=== PATIENT | female | born 1985 | race Caucasian/White ===

== ENCOUNTER → 2019-04-22 | Outpatient (CLI) | payer BC | LOC: LAB 17:43 | PROVIDERS: ATTEND Nurse Practitioner Family | DX: Z32.00 Encounter for pregnancy test, result unknown (principal); R53.83 Other fatigue | CPT/HCPCS: 36415; 84703 ==

== ENCOUNTER → 2019-09-12 | Outpatient (CLI) | payer BC ==
--- NOTE | 2019-09-12 16:43 | Diagnostic Imaging Report ---
INDICATION: . TECHNIQUE: Multiple real-time grayscale images were obtained over the gravid uterus. COMPARISON: None FINDINGS: There is single live intrauterine fetus which is vertex. Amniotic fluid index is normal at 10 cm. The placenta is anterior and not low. No evidence of abruption or previa. Normal heart rate. anatomical survey is normal. kidneys, bladder, stomach, ventricles and brain, four-chamber heart, three-vessel cord, cord insertion and spine are normal. Biometrical measurements are as follows: Biparietal 4.75 cm, age 20 weeks 3 days. Head circumference 18.60 cm, age 21 weeks 0 days. Abdominal circumference 15.42 cm, age 20 weeks 5 days. Femur length 3.45 cm, age 21 weeks 0 days. Sonographic estimate age: 20 weeks 6 days. Sonographic estimated date of delivery: 01/24/2020. Estimated Weight: 373 gm (+/- 55 gm). LMP percentile: 31%. heart rate: 156 beats per minute. number: 1 of 1. IMPRESSION: 1. Normal single live intrauterine fetus in vertex presentation. Current biometric measurements are average for 20 weeks 6 day gestation. No abnormalities demonstrated. Dictated by: Dictated on workstation # [id number]
== END ==
LOC: RAD 14:43
PROVIDERS: ATTEND Obstetrics & Gynecology
DX: Z36.9 Encounter for antenatal screening, unspecified (principal); Z3A.20 20 weeks gestation of pregnancy
CPT/HCPCS: 76805

== ENCOUNTER 2020-01-20 08:05 | Inpatient (IN) | payer BC ==
[~2020-01-20] VITALS: Ht 170.2 cm; Wt 77.4 kg
[2020-01-20] VITALS (47 sets, daily range): BP systolic 106–158; BP diastolic 56–99
--- NOTE | 2020-01-20 08:10 | NUR ---
CAESAR BROWN presented to unit via AMBULATORY from ED, accompanied by S/O, with c/o LABOR. CAESAR BROWN weighed, gowned, voided, and to bed. EFHM and TOCO applied, VS taken. CAESAR BROWN oriented to bed controls, call light, TV, heat, and A/C controls.
[2020-01-20] MEDS ORDERED: D5 LR IV SOLUTION 1,000 ML IV ONE (08:17)
[2020-01-20] MEDS ORDERED: D5 LR IV SOLUTION 1,000 ML IV SCH (08:34)
[2020-01-20] MEDS ORDERED: OXYTOCIN PRE-MIX DRIP 500 ML IV SCH ×2 (08:36→15:56)
--- NOTE | 2020-01-20 08:42 | History & Physical-OB ---
OB - Chief Complaint & HPI Date/Time Date of Admission: Date of Admission: January 20, 2020 at 08:26 Date seen by a Provider: January 20, 2020 Time Seen by a Provider: 08:30 Chief Complaint/History OB-Reason for Admission/Chief: Onset of Labor Hx : 1 Hx Para: 0 Expected Date of Delivery: Jan 23, 2020 Gestational Age in Weeks: 39 Gestational Age in Days: 4 Admission Nurse Assessment Rev: Yes Allergies and Home Medications Allergies Coded Allergies: No Known Drug Allergies (Unverified , 01/20/20) Patient Home Medication List Home Medication List Reviewed: Yes OB - History Hx of Present Care: Yes Ultrasounds: Normal mid trimester US Obstetrical Complications: None Medical Complications: None Patient Past Medical History n/a OB - Admission Exam Physical Exam HEENT: NCAT Heart: Rhythm Normal Lungs: Clear Abdomen: Gravid Extremities: Normal Reflexes: Normal Cervical Dilatation: 5cm Effacement: 100% Station: -1 Membranes: Ruptured Amniotic Fluid: Clear Heart Rate: 130's Accelerations: Accelerations Present Decelerations: No Decelerations Short Term Variability: Present Guest History Clerk Variability: Average (6-25) Contractions on Admission: < 5 Minutes Apart Intensity: Firm OB - Assessment/Plan/Diagnosis Assessment Assessment: active labor, rupture of membranes Admission Dx 34 yo @ 39.4 weeks Active labor GBS neg AMA Admission Status: Inpatient Order (span 2 midnights) Reason for Inpatient Admission: Active labor at term Plan Plan: Expectant Management MERCEDES MALIN DO January 20, 2020 08:42
--- OUTSIDE RECORDS SUMMARY | 2020-01-20 08:49 | XMS REPORT | Continuity of Care Document ---
Author Organization Unknown Address Unknown Phone Unavailable Allergies There is no data. Medications There is no data. Problems Date Dx Coded Attending Type Code Diagnosis Diagnosed By 04/27/2019 KRISTA, BIGG L CHAIN DYER Ot R53.83 OTHER FATIGUE 04/27/2019 KRISTA, BIGG L CHAIN DYER Ot Z32.00 ENCOUNTER FOR TEST, RESULT UNK 05/10/2019 KRISTA, BIGG L CHAIN DYER Ot R53.83 OTHER FATIGUE 05/10/2019 KRISTA, BIGG L CHAIN DYER Ot Z32.00 ENCOUNTER FOR TEST, RESULT UNK 05/23/2019 KRISTA, BIGG L CHAIN DYER Ot R53.83 OTHER FATIGUE 05/23/2019 KRISTA, BIGG L CHAIN DYER Ot Z32.00 ENCOUNTER FOR TEST, RESULT UNK 05/23/2019 KRISTA, BIGG L CHAIN DYER Ot R53.83 OTHER FATIGUE 05/23/2019 KRISTA, BIGG L CHAIN DYER Ot Z32.00 ENCOUNTER FOR TEST, RESULT UNK 09/12/2019 MERCEDES MALIN DO Ot Z36.9 ENCOUNTER FOR SCREENING, UNSPE 09/12/2019 WOLFGANGECH , MERCEDES Roberson Ot Z3A.20 20 WEEKS GESTATION OF 10/04/2019 MERCEDES MALIN DO Ot Z36.9 ENCOUNTER FOR SCREENING, UNSPE 10/04/2019 KIMO WHITEHEAD, MERCEDES Roberson Ot Z3A.20 20 WEEKS GESTATION OF Procedures There is no data. Results Test Result Range Serum or plasma choriogonadotropin (preg thea test) detection - 04/22/19 17:48 Serum or plasma choriogonadotropin ( test) de tection NEGATIVE NEGATIVE Encounters ACCT No. Visit Date/Time Discharge Status Pt. Type Provider Facility Loc./Unit Complaint [id number] 09/12/2019 14:43:00 020 23:59:59 [facility] Outpatient MERCEDES MALIN DO [facility] RAD [id number] 04/22/2019 17:43:00 019 23:59:59 [facility] Outpatient BIGG VELASCO APRN [facility] LAB OTHER FATIGUE
[2020-01-20 08:51] LABS: BASOPHILS % (AUTO) 0 % (0-10); EOSINOPHILS # (AUTO) 0.1 10^3/uL (0.0-0.3); EOSINOPHILS % (AUTO) 1 % (0-10); HEMATOCRIT 37 % (35-52); HEMOGLOBIN 12.3 G/DL (11.5-16.0); LYMPHOCYTES # (AUTO) 1.3 X 10^3 (1.0-4.0); LYMPHOCYTES % (AUTO) 13 % (12-44); MEAN CORPUSCULAR HEMOGLOBIN 30 PG (25-34); MEAN CORPUSCULAR HGB CONC 34 G/DL (32-36); MEAN CORPUSCULAR VOLUME 90 FL (80-99); MEAN PLATELET VOLUME 9.9 FL (7.4-10.4); MONOCYTES % (AUTO) 10 % (0-12); NEUTROPHILS # (AUTO) 7.8 X 10^3 (1.8-7.8); NEUTROPHILS % (AUTO) 77 % (42-75); PLATELET COUNT 209 10^3/uL (130-400); RED CELL DISTRIBUTION WIDTH 13.7 % (10.0-14.5); WHITE BLOOD COUNT 10.2 10^3/uL (4.3-11.0)
[2020-01-20] MEDS ORDERED: fentaNYL 2 mcg/ml BUPIVA 0.125 100 ML ONE (09:05)
[2020-01-20] MEDS ORDERED: LIDOCAINE PF 2% 5 ML (XYLOCAINE) VIAL ONE (09:18)
[2020-01-20] MEDS ORDERED: fentaNYL INJECTION 100 MCG/2 ML AMP ONE (09:18)
--- NOTE | 2020-01-20 09:27 | NUR ---
0927 Eduarda SARGENT CRNA here for epidural placement. Procedure explained, consent reviewed and signed by anesthesia. Questions answered to patient's satisfaction. Time out taken to verify correct patient/procedure. 0929 Patient up to side of bed, assisted into sitting position. 0933 Betadine prep done x3 and sterile drape applied. 0934 Local done, see anesthesia record. Epidural catheter secured in place. Epidural placement complete. 0945 Assisted back into bed, monitors adjusted. Epidural dosed, see anesthesia record. Epidural started @ 12cc/hr stated per pump. Patient tolerated procedure well.
[2020-01-20] MEDS ORDERED: LACTATED RINGERS 1,000 ML IV ONE ×2 (10:06)
[2020-01-20] MEDS ORDERED: BUPIVACAINE 0.25% 30 ML (SENSORCAINE) VIAL ONE (10:08)
[2020-01-20] MEDS ORDERED: NALOXONE 0.4 MG/ML 1 ML (NARCAN) VIAL IV PRN (10:15)
[2020-01-20] MEDS ORDERED: ONDANSETRON 4 MG/2 ML (SDV) Z0FRAN IV PRN (10:15)
[2020-01-20] MEDS ORDERED: EPIDURAL (fentaNYL 2 MCG/ML BUPIVA 0.125%)100 ML BAG EPI PRN (10:15)
[2020-01-20] MEDS ORDERED: PREN-37 PO (11:56)
[2020-01-20] MEDS ORDERED: WATER (STERILE) FOR INJECTION 10 ML ONE (12:08)
[2020-01-20] MEDS ORDERED: AMPICILLIN FOR IV USE 1,000 MG/VIAL ONE (12:08)
[2020-01-20] MEDS ORDERED: LIDOCAINE/EPI 2% 1:200,00 (XYLOCAINE) 20 ML VIAL ONE (13:45)
[2020-01-20] MEDS ORDERED: CATHETER FLUSH 10 ML SYR IV SCH ×2 (14:00→22:00)
[2020-01-20] MEDS ORDERED: TETANUS,DIPTH,PERTUSS P/F (BOOSTRIX) 0.5 ML VIAL IM ONE (16:00)
[2020-01-20] MEDS ORDERED: DIBUCAINE (NUPERCAINAL) 1% OINT 30 GM TOP PRN (16:00)
[2020-01-20] MEDS ORDERED: MEASLES,MUMPS,RUBELLA 1 EA INJ SQ ONE (16:00)
--- NOTE | 2020-01-20 16:07 | OB Labor & Delivery Record ---
L&D History Date of Service Date of Service: January 20, 2020 History Expected Date of Delivery: Jan 23, 2020 Gestational Age in Weeks: 39 Hx : 1 Hx Para: 0 Complications Events: Routine care Operative Indications (Cesarea: N/A-Vaginal Delivery Intrapartal Events: None L&D Stage1 Stage One Onset of Labor - Date: January 20, 2020 Monitors and Tracing Monitor Mode: External Monitor Accelerations: Uniform Monitor Decelerations: Variable Station: -1 Gas Charger Variability: Average (6-10) Short Term Variability: Present Presentation: Vertex Vital Signs VS - Last 72 Hours, by Label 01/20/20 01/20/20 01/20/20 01/20/20 08:21 09:26 09:30 09:34 Pulse 68 71 77 74 Resp 18 18 18 18 B/P (MAP) 154/99 (117) 151/80 (103) 143/99 (114) 139/82 (101) Pulse Ox 97 O2 Delivery Room Air Room Air Room Air Room Air 01/20/20 01/20/20 01/20/20 01/20/20 09:37 09:40 09:42 09:46 Pulse 69 75 70 66 Resp 18 18 18 18 B/P (MAP) 155/75 (101) 137/78 (97) 141/87 (105) 138/87 (104) Pulse Ox 100 98 96 O2 Delivery Room Air Room Air Room Air Room Air 01/20/20 01/20/20 01/20/20 01/20/20 09:49 09:51 09:54 09:57 Pulse 60 76 68 64 Resp 18 18 18 18 B/P (MAP) 152/77 (102) 136/84 (101) 131/85 (100) 129/63 (85) Pulse Ox 95 96 O2 Delivery Room Air Room Air Room Air Room Air 01/20/20 01/20/20 01/20/20 01/20/20 10:00 10:03 10:10 10:16 Pulse 70 75 61 66 Resp 18 18 18 18 B/P (MAP) 138/63 (88) 125/58 (80) 134/86 (102) 141/81 (101) Pulse Ox 96 97 99 O2 Delivery Room Air Room Air Room Air Room Air 01/20/20 01/20/20 01/20/20 01/20/20 10:20 10:24 10:30 10:34 Pulse 65 66 64 72 Resp 18 18 18 18 B/P (MAP) 135/81 (99) 143/85 (104) 130/84 (99) 121/91 (101) Pulse Ox 99 97 97 97 O2 Delivery Room Air Room Air Room Air Room Air 01/20/20 01/20/20 01/20/20 01/20/20 10:40 10:46 10:50 10:54 Pulse 62 63 66 70 Resp 18 18 18 18 B/P (MAP) 128/79 (95) 122/89 (100) 128/77 (94) 132/83 (99) Pulse Ox 97 98 98 100 O2 Delivery Room Air Room Air Room Air Room Air 01/20/20 01/20/20 10:58 11:11 Temp 36.3 Pulse 61 Resp 18 B/P (MAP) 114/59 (77) Pulse Ox 99 O2 Delivery Room Air Rupture of Membranes Spontaneous Ruture of Membrane: Yes Amniotic Membrane Rupture Time: 07:15 Amniotic Membrane Fluid Desc.: Clear Vaginal Bleeding Description: Normal Show Induction/Anesthesia Epidural Cath Placement - Time: 0941 Progress/Notes After arrival patient received epidural, pitocin augmentation was started. She progressed to complete and +1 station L&D Stage2 Stage Two Stage II Date: January 20, 2020 Monitors and Tracing Monitor Mode: External Monitor Accelerations: Uniform Monitor Decelerations: Variable Gas Charger Variability: Average (6-10) Short Term Variability: Present Position: Right Occiput Anterior Presentation: Vertex Cord Descript/Complications Cord Vessel Description: 3 Vessels Delivery Type Delivery Method: Spontaneous Vaginal Anterior Shoulder: Left Episiotomy/Perineal Laceration Laceraction(s)/Extensions: Yes Episiotomy Description: Periurethral Extnsion/lac, Vaginal Extension/lac, 1st degree Degree (describe repair) Vaginal and periurethral lacerations repiared using 3-0 vicryl suture in usual fashion Condition of Infant Delivery 1 minute Comment: 8 5 minute Comment: 9 Notes Live male infant weight 7lbs 9oz. Condition of Condition of Infant: Living Exam: No Observed Abnormalities Resuscitation Resuscitation: N/A - Spontaneous Resp L&D Stage3 Stage Three Stage III Date: January 20, 2020 Pictocin Pitocin Administration Comment: 30 mu wide open at delivery of placenta Placenta Delivery Placenta Delivery: Spontaneous Delivery Summary Summary Estimated blood loss (mL): 300 Attending at delivery: Mercedes Malin DO Condition of Delivery Examined: Cervix Examined, Uterus Explored Post Hemorrhage: No Condition of Mother stable Condition of Infant (s) stable MERCEDES MALIN DO January 20, 2020 16:07
[2020-01-20] MEDS: WITCH HAZEL(TUCKS) 40 EA JAR TOP PRN (16:41)
[2020-01-20] MEDS: BENZOCAINE/MENTHOL (DERMOPLAST) 60 ML CAN TP PRN (16:41)
[2020-01-20] MEDS: IBUPROFEN 600 MG (MOTRIN) TAB PO SCH ×2 (16:41→21:57)
--- NOTE | 2020-01-20 18:05 | NUR ---
REFER TO LABOR FLOW SHEET.
--- NOTE | 2020-01-20 18:45 | NUR ---
PT SITTING UP ON THE SIDE OF THE BED, ICE PACK PROVIDED FOR PERINEUM. 'S TEMP OBTAINED PER PT'S REQUEST. QUESTIONS ANSWERED. NO FURTHER NEEDS VOICED. CALL LIGHT WITHIN REACH.
[2020-01-20] MEDS: DOCUSATE SODIUM 100 MG (COLACE) CAP PO SCH (20:58)
[2020-01-20] MEDS: HYDROcodone/APAP 5 MG/325 MG (LORTAB) TAB PO PRN (22:44)
--- NOTE | 2020-01-21 03:30 | NUR ---
report received from Katy Corey RN
[2020-01-21] MEDS: IBUPROFEN 600 MG (MOTRIN) TAB PO SCH ×4 (03:43→22:21)
[2020-01-21 03:45] VITALS: BP 120/73
[2020-01-21 06:00] LABS: BASOPHILS % (AUTO) 0 % (0-10); EOSINOPHILS % (AUTO) 0 % (0-10); HEMATOCRIT 30 % (35-52); HEMOGLOBIN 10.1 G/DL (11.5-16.0); LYMPHOCYTES # (AUTO) 1.3 X 10^3 (1.0-4.0); LYMPHOCYTES % (AUTO) 11 % (12-44); MEAN CORPUSCULAR HEMOGLOBIN 30 PG (25-34); MEAN CORPUSCULAR HGB CONC 33 G/DL (32-36); MEAN CORPUSCULAR VOLUME 91 FL (80-99); MEAN PLATELET VOLUME 9.5 FL (7.4-10.4); MONOCYTES % (AUTO) 8 % (0-12); NEUTROPHILS # (AUTO) 9.7 X 10^3 (1.8-7.8); NEUTROPHILS % (AUTO) 81 % (42-75); PLATELET COUNT 180 10^3/uL (130-400); RED CELL DISTRIBUTION WIDTH 13.6 % (10.0-14.5)
[2020-01-21 07:50] VITALS: BP 104/70
--- NOTE | 2020-01-21 07:56 | Postpartum Progress Note ---
Note Note Day # 1 Subjective: Patient is without complaints. Ambulating, voiding. Tolerating a regular diet without nausea or vomiting. Normal lochia. Pain is well controlled with oral pain medications. Objective: Physical Exam: General - Alert and oriented, no apparent distress Abdomen - Soft, appropriately tender to palpation, non-distended, fundus firm at umbilicus Extremities - no edema, negative Stanford's bilaterally Assessment: PPD 1 NVD Acute blood loss anemia Plan: Routine care. Encourage breast feeding. Encourage ambulation. Ferrous sulfate supplementation. Plan for discharge today, pending infant release Vitals - Labs Vital Signs - I&O Vital Signs Date Time Temp Pulse Resp B/P (MAP) Pulse Ox O2 Delivery O2 Flow Rate FiO2 01/21/20 03:45 36.6 66 16 120/73 (89) 96 Room Air 01/20/20 23:13 37.0 55 14 125/56 (79) 97 Room Air 01/20/20 20:00 36.7 57 16 139/77 (97) 94 Room Air 01/20/20 16:09 77 18 133/63 (86) Room Air 01/20/20 15:54 37.4 88 18 158/69 (98) Room Air 01/20/20 15:39 94 18 131/69 (89) Room Air 01/20/20 15:25 104 18 127/69 (88) Room Air 01/20/20 15:10 133 18 135/66 (89) Room Air 01/20/20 14:56 96 18 135/70 (91) Room Air 01/20/20 14:45 37.1 01/20/20 14:40 81 18 124/69 (87) Room Air 01/20/20 14:24 76 18 130/79 (96) Room Air 01/20/20 14:11 144 18 127/79 (95) Room Air 01/20/20 13:54 72 18 127/75 (92) 100 Room Air 01/20/20 13:40 36.1 63 18 123/81 (95) Room Air 01/20/20 13:26 81 18 127/78 (94) 100 Room Air 01/20/20 13:10 73 18 135/79 (97) 100 Room Air 01/20/20 13:04 35.7 01/20/20 12:55 64 18 126/75 (92) 100 Room Air 01/20/20 12:40 66 18 128/67 (87) 100 Room Air 01/20/20 12:25 63 18 133/86 (102) 100 Room Air 01/20/20 12:10 68 18 130/82 (98) 100 Room Air 01/20/20 11:54 71 18 131/70 (90) 99 Room Air 01/20/20 11:40 36.4 71 18 114/69 (84) 100 Room Air 01/20/20 11:26 60 18 106/58 (74) 98 Room Air 01/20/20 11:11 61 18 114/59 (77) 99 Room Air 01/20/20 10:58 36.3 01/20/20 10:54 70 18 132/83 (99) 100 Room Air 01/20/20 10:50 66 18 128/77 (94) 98 Room Air 01/20/20 10:46 63 18 122/89 (100) 98 Room Air 01/20/20 10:40 62 18 128/79 (95) 97 Room Air 01/20/20 10:34 72 18 121/91 (101) 97 Room Air 01/20/20 10:30 64 18 130/84 (99) 97 Room Air 01/20/20 10:24 66 18 143/85 (104) 97 Room Air 01/20/20 10:20 65 18 135/81 (99) 99 Room Air 01/20/20 10:16 66 18 141/81 (101) 99 Room Air 01/20/20 10:10 61 18 134/86 (102) 97 Room Air 01/20/20 10:03 75 18 125/58 (80) Room Air 01/20/20 10:00 70 18 138/63 (88) 96 Room Air 01/20/20 09:57 64 18 129/63 (85) 96 Room Air 01/20/20 09:54 68 18 131/85 (100) Room Air 01/20/20 09:51 76 18 136/84 (101) 95 Room Air 01/20/20 09:49 60 18 152/77 (102) Room Air 01/20/20 09:46 66 18 138/87 (104) 96 Room Air 01/20/20 09:42 70 18 141/87 (105) Room Air 01/20/20 09:40 75 18 137/78 (97) 98 Room Air 01/20/20 09:37 69 18 155/75 (101) 100 Room Air 01/20/20 09:34 74 18 139/82 (101) Room Air 01/20/20 09:30 77 18 143/99 (114) 97 Room Air 01/20/20 09:26 71 18 151/80 (103) Room Air 01/20/20 08:21 68 18 154/99 (117) Room Air I & O 01/21/20 07:00 Intake Total 3200 ml Balance 3200 ml Labs Laboratory Tests 01/20/20 08:40: White Blood Count 10.2, Red Blood Count 4.07L, Hemoglobin 12.3, Hematocrit 37, Mean Corpuscular Volume 90, Mean Corpuscular Hemoglobin 30, Mean Corpuscular Hemoglobin Concent 34, Red Cell Distribution Width 13.7, Platelet Count 209, Mean Platelet Volume 9.9, Neutrophils (%) (Auto) 77H, Lymphocytes (%) (Auto) 13, Monocytes (%) (Auto) 10, Eosinophils (%) (Auto) 1, Basophils (%) (Auto) 0, Neutrophils # (Auto) 7.8, Lymphocytes # (Auto) 1.3, Monocytes # (Auto) 1.0, Eosinophils # (Auto) 0.1, Basophils # (Auto) 0.0 01/21/20 05:28: White Blood Count 12.0H, Red Blood Count 3.34L, Hemoglobin 10.1L, Hematocrit 30L , Mean Corpuscular Volume 91, Mean Corpuscular Hemoglobin 30, Mean Corpuscular Hemoglobin Concent 33, Red Cell Distribution Width 13.6, Platelet Count 180, Mean Platelet Volume 9.5, Neutrophils (%) (Auto) 81H, Lymphocytes (%) (Auto) 11L , Monocytes (%) (Auto) 8, Eosinophils (%) (Auto) 0, Basophils (%) (Auto) 0, Neutrophils # (Auto) 9.7H, Lymphocytes # (Auto) 1.3, Monocytes # (Auto) 1.0, Eosinophils # (Auto) 0.0, Basophils # (Auto) 0.0 MERCEDES MALIN DO January 21, 2020 07:56
[2020-01-21] MEDS ORDERED: BENZ78AE2 TP (07:58)
[2020-01-21] MEDS ORDERED: IBUP-844 PO (07:58)
[2020-01-21] MEDS ORDERED: DCS100C PO (07:58)
[2020-01-21] MEDS ORDERED: HYDR-83 PO (07:58)
[2020-01-21] MEDS ORDERED: DIBU30OI TOP (07:58)
--- NOTE | 2020-01-21 07:59 | Discharge Inst-Women's Service ---
Discharge Inst-Women's Serv Depart Medication/Instructions New, Converted or Re-Newed RX: RX on Chart Final Diagnosis PPD 1 NVD Problems Reviewed?: Yes Consults/Follow Up Additional Follow Up: Yes Orders/Referrals Dr. Malin 6 weeks Activity Activity: Activity as Tolerated Driving Instructions: No Driving for 1 Week NO SMOKING: NO SMOKING Nothing Inside Vagina: No Douching, No [place], No Tampons Diet Discharge Diet: No Restrictions Symptoms to Report to : Bleeding Excessive, Pain Increased, Fever Over 101 Degrees F, Vaginal Bleeding Increase, Questions/Concerns For Any Problems or Questions: Contact Your Physician MERCEDES MALIN DO January 21, 2020 07:59
--- NOTE | 2020-01-21 10:21 | Anesthesia-Regional Post-Op ---
Regional Patient Condition Mental Status: Alert, Oriented x3 Circulation: Same as Pre-Op Headache: Absent Sensation: Full Recovery Motor Block: Absent Post Op Complications Complications None Follow Up Care/Instructions Patient Instructions None needed. Anesthesia/Patient Condition Patient is doing well, no complaints, stable vital signs, no apparent adverse anesthesia problems. No complications reported per nursing. JERMAINE SARGENT CRNA January 21, 2020 10:21
[2020-01-21] MEDS: PRENATAL VITAMIN 1 EA TAB PO SCH (11:42)
[2020-01-21] MEDS: DOCUSATE SODIUM 100 MG (COLACE) CAP PO SCH ×2 (11:42→19:39)
[2020-01-21] MEDS: HYDROcodone/APAP 5 MG/325 MG (LORTAB) TAB PO PRN ×2 (12:35→19:40)
[2020-01-21 16:05] VITALS: BP 129/68
[2020-01-21 19:45] VITALS: BP 111/76
[2020-01-21 22:20] VITALS: BP 112/77
[2020-01-22 04:30] VITALS: BP 113/76
[2020-01-22] MEDS: IBUPROFEN 600 MG (MOTRIN) TAB PO SCH (04:36)
[2020-01-22] MEDS: HYDROcodone/APAP 5 MG/325 MG (LORTAB) TAB PO PRN (04:36)
--- NOTE | 2020-01-22 09:00 | Postpartum Progress Note ---
Note Note Day # 2 Subjective: Patient is without complaints. Ambulating, voiding. Tolerating a regular diet without nausea or vomiting. Normal lochia. Pain is well controlled with oral pain medications. Objective: Physical Exam: General - Alert and oriented, no apparent distress Abdomen - Soft, appropriately tender to palpation, non-distended, fundus firm at umbilicus Extremities - no edema, negative Stanford's bilaterally Assessment: PPD 2 NVD Plan: Routine care. Encourage breast feeding. Encourage ambulation. Ferrous sulfate supplementation. Plan for discharge today Vitals - Labs Vital Signs - I&O Vital Signs Date Time Temp Pulse Resp B/P (MAP) Pulse Ox O2 Delivery O2 Flow Rate FiO2 01/22/20 04:30 36.5 68 16 113/76 (88) 98 Room Air 01/21/20 22:20 36.6 63 16 112/77 (89) 97 Room Air 01/21/20 19:45 36.1 64 16 111/76 (88) 97 Room Air 01/21/20 16:05 37.1 68 20 129/68 (88) Room Air MERCEDES MALIN DO January 22, 2020 09:00
[2020-01-22 09:46] VITALS: BP 130/74
[2020-01-22] MEDS: PRENATAL VITAMIN 1 EA TAB PO SCH (09:46)
[2020-01-22] MEDS: DOCUSATE SODIUM 100 MG (COLACE) CAP PO SCH (09:46)
[2020-01-22] MEDS: BENZOCAINE/MENTHOL (DERMOPLAST) 60 ML CAN TP PRN (09:46)
[2020-01-22] MEDS: WITCH HAZEL(TUCKS) 40 EA JAR TOP PRN (09:46)
--- NOTE | 2020-01-22 09:46 | NUR ---
AM shift assessment completed and vital signs obtained, see interventions. Plan of care reviewed with patient. Patient verbalizes understanding and questions answered. Scheduled Colace and PNV PO given.
--- NOTE | 2020-01-22 12:21 | NUR ---
Discharge instructions and medications reviewed with patient both written and verbally. Patient verbalizes understanding and questions answered.
--- NOTE | 2020-01-22 12:30 | NUR ---
Patient discharged at this time and ambulated down to awaiting private vehicle accompanied by this RN. No signs or symptoms of distress noted.
== END 2020-01-22 12:30 | disposition home or self-care (01) | DRG 806 ==
LOC: WSo 08:05 → LDRP 08:23 → WSo 08:26 → LDRP 08:26
PROVIDERS: ADMIT Obstetrics & Gynecology; ATTEND Obstetrics & Gynecology
PROC: 10E0XZZ Delivery of Products of Conception, External Approach (ICD-10-PCS; principal; 2020-01-20)
PROC: 0HQ9XZZ Repair Perineum Skin, External Approach (ICD-10-PCS; 2020-01-20)
PROC: 0UQMXZZ Repair Vulva, External Approach (ICD-10-PCS; 2020-01-20)
PROC: 0W8NXZZ Division of Female Perineum, External Approach (ICD-10-PCS; 2020-01-20)
DX: O71.82 Other specified trauma to perineum and vulva (principal); O90.81 Anemia of the puerperium; D62 Acute posthemorrhagic anemia; Z37.0 Single live birth; O70.0 First degree perineal laceration during delivery; Z3A.39 39 weeks gestation of pregnancy
CPT/HCPCS: 36415; 85025; 86850; 86900; 86901; 99212

== ENCOUNTER 2021-08-19 11:30 | Outpatient (CLI) | payer BC ==
[~2021-08-19] VITALS: Ht 170 cm; Wt 63.6 kg
[2021-08-19 11:30] VITALS: BP 137/77
[~2021-08-19 11:30] MED LIST: ACHD5005 PO; BENZ78AE5 TP; DIBU30OI TOP; DOCU-239 PO; IBUP-844 PO; PREN-37 PO
[2021-08-19] MEDS ORDERED: diphenhydrAMINE 50 MG/ML INJ (BENADRYL) IV PRN (12:15)
[2021-08-19] MEDS ORDERED: EPINEPHrine INJECTION 1 MG/ML AMP IM PRN (12:15)
[2021-08-19] MEDS ORDERED: ACETAMINOPHEN 500 MG TAB (TYLENOL) PO PRN (12:15)
[2021-08-19] MEDS ORDERED: BAMLANIVIMAB 700 MG/ETESEVIMAB 1,400 MG IN NS IV ONE ×3 (12:15)
[2021-08-19] MEDS ORDERED: ONDANSETRON 4 MG/2 ML (SDV) Z0FRAN IV PRN (12:15)
[2021-08-19 13:15] VITALS: BP 129/83
== END 2021-08-19 13:15 | disposition home or self-care (01) ==
LOC: INFUSION 11:30
PROVIDERS: ATTEND Physician Assistant
DX: U07.1 COVID-19 (principal)

== ENCOUNTER → 2023-07-20 | Outpatient (CLI) | payer BC ==
--- NOTE | 2023-07-20 13:41 | Diagnostic Imaging Report ---
INDICATION: Supervision of normal . Anatomy scan. TECHNIQUE: Multiple real-time grayscale images were obtained over the gravid uterus. COMPARISON: None FINDINGS: A single live intrauterine gestation is visualized in cephalic presentation. heart tones measure 132 bpm. The placenta is anterior and not low lying. The MEL is normal and measures 11.1 cm. The cervix is closed and measures 3.8 cm in length. The kidneys, bladder, stomach, brain, four-chamber heart, outflow tracts, spine, 3-vessel cord, and cord insertion are visualized and have a normal appearance. Views of the adnexa are unremarkable. Biometrical measurements are as follows: Biparietal 4.53 cm, age 19 weeks 5 days. Head circumference 17.06 cm, age 19 weeks 5 days. Abdominal circumference 13.87 cm, age 19 weeks 2 days. Femur length 3.35 cm, age 20 weeks 4 days. Sonographic estimate age: 19 weeks 6 days. Sonographic estimated date of delivery: 12/08/2023. Estimated Weight: 315 gm (+/- 46 gm). LMP percentile: 36%. heart rate: 132 beats per minute. number: 1 of 1. IMPRESSION: 1. Single live intrauterine gestation measuring 19 weeks 6 days with an estimated due date of 12/08/2023. These are within range of the clinical dates. 2. No sonographic abnormalities are visualized. Dictated by: Dictated on workstation # [id number]
== END ==
LOC: RAD 08:05
PROVIDERS: ATTEND Obstetrics & Gynecology
DX: Z34.81 Encounter for supervision of other normal pregnancy, first trimester (principal)
CPT/HCPCS: 76805